=== PATIENT | male | born 1935 | race Caucasian/White ===

== ENCOUNTER → 2016-11-04 | Outpatient (CLI) | payer MEDICARE ==
[~2016-11-04] MED LIST: /PRAV20TA PO; ACCU40TA PO; ALEV220C2 PO; ASPI81TA85 PO; AUGM875T27 PO; FOLATE PO; MULTTAB4 PO; No Medications; THIA100T PO
--- NOTE | 2016-11-04 17:33 | REP ---
Three-phase bone scan of the feet and ankles: History: Pressure ulcer left heel. Comparison left os calcis views 11/04/2016. These show an area of cortical bone and subcortical bone destruction in the calcaneus indicating osteomyelitis. Technique: 20.3 mCi technetium 99m MDP is injected and standard three-phase imaging was acquired. Scintigraphic findings: Anterior posterior flow images demonstrate hyperemic flow in the left foot and ankle soft tissues. Blood pool images demonstrate hyperemic flow in the area of the left calcaneus and to a lesser extent in the posterior calcaneus on the right. Delayed scan images demonstrate intensely increased uptake in the posterior calcaneus centered about the area of erosion. Impression: Increased uptake in all three phases of the study in the posterior calcaneus region on the left compatible with calcaneal osteomyelitis. There is some increased uptake in the region of the posterior calcaneus on the right as well although this is much less prominent. Signed by Vickey Arndt MD 11/04/2016 06:21 P
--- NOTE | 2016-11-05 05:40 | REP ---
REASON: Heel ulcer. COMPARISON: None. There is a rarefied area of bone involving the posterior os calcis near the plantar surface measuring 2.3 x 0.7 x 2.2 cm. This finding in the setting of a known soft tissue ulcer overlying the region is highly suspicious for osteomyelitis. Further imaging with pre- and post Gadolinium enhanced MRI is recommended. Signed by Sotero Shah DO 11/05/2016 01:59 P
== END ==
LOC: M RAD 09:57
PROVIDERS: ATTEND Surgery
DX: L89.624 Pressure ulcer of left heel, stage 4 (principal)
CPT/HCPCS: 73650; 78315; A9503